=== PATIENT | female | born 1975 | race Caucasian/White ===

== ENCOUNTER 2023-08-13 13:38 | Emergency (ER) | payer OTHER, SELFPAY ==
--- NOTE | ~2023-08-13 | XR_ITS ---
XR hand LT min 3V DATE: 08/13/2023 13:57 INDICATION: Generalized pain at third and fourth digits after lifting TECHNIQUE: 3 views COMPARISON: None FINDINGS: No fracture, dislocation, periosteal reaction or bone destruction, joint space, erosive tri nge or chondrocalcinosis. IMPRESSION: Negative Reviewed, dictated and finalized at location L. IMPRESSION: Negative
--- NOTE | 2023-08-13 13:39 | ED.UPPEXIN ---
HPI - Extremity Injury (Upper) General Chief Complaint: Extremity Injury, Upper Stated Complaint: Left Hand/Finger Injury Time Seen by Provider: 08/13/23 13:39 Source: patient Mode of arrival: ambulatory Limitations: no limitations History of Present Illness HPI narrative: Alejandra is a 48-year-old female patient presenting to the clinic today with complaints of left 3rd and 4th finger injury/pain. She reports that she was lifting a box yesterday and developed pain to the proximal 3rd and 4th fingers. She denies any known injury to her fingers. Related Data Home Medications Medication Instructions Recorded Confirmed progesterone micronized 100 mg 100 mg PO QAM 08/13/23 08/13/23 capsule Allergies Allergy/AdvReac Type Severity Reaction Status Date / Time HYDROCODONE BIT AdvReac Other Uncoded 08/13/23 14:19 Review of Systems Review of Systems: Pertinent positives per HPI. Patient denies any fever, chills, rash, headache, visual changes, dizziness, cough, runny nose, sore throat, shortness of breath, chest pain, palpitations, nausea, vomiting, diarrhea, constipation, abdominal pain, or any urinary issues. PMFSH Comments At the time of my signature, I reviewed and agree with the nursing past medical, surgical, social, and family history. There is no relevant family history pertinent to the patient complaint. Exam Narrative: General: Well-developed, well nourished, in no apparent distress Head: Normocephalic, atraumatic. Cardio: Regular rate and rhythm, s1 and s2 normal, no murmur appreciated. Resp: Clear to auscultation bilaterally, no rhonchi, rales, wheezing or rubs. Musculoskeletal: No deformity, tender to the proximal 3rd and 4th phalanx to palpation, no pain with flexion and extension against resistance, grossly normal range of motion, muscle strength strong and equal, peripheral pulse strong, no edema, no cyanosis, normal gait and station Course Course Emergency Course: Portions of this record may have been created with voice recognition software. Level of Care: Express Care Visit Vital Signs Vital signs: Vital Signs Temperature 36.6 C 08/13/23 13:45 Pulse Rate 74 08/13/23 13:45 Respiratory Rate 18 08/13/23 13:45 Blood Pressure 106/73 08/13/23 13:45 Pulse Oximetry 99 08/13/23 13:45 Oxygen Delivery Room Air 08/13/23 13:45 Temperature 36.6 C 08/13/23 13:45 Pulse Rate 74 08/13/23 13:45 Respiratory Rate 18 08/13/23 13:45 Blood Pressure 106/73 08/13/23 13:45 Pulse Oximetry 99 08/13/23 13:45 Oxygen Delivery Room Air 08/13/23 13:45 Vital signs reviewed MDM - Extremity Injury (Upper) MDM Narrative Medical decision making narrative: At the time of visit patient is resting comfortably on the exam table. X-rays of the left hand was performed and shows no sign of fracture or malalignment of the fingers. Supportive measures were discussed with the patient she voiced understanding discharge instructions agrees to treatment plan. Differential Diagnosis Differential diagnosis: Likely finger sprain and other (Finger pain, tendon strain) Discharge Plan Discharge Clinical Impression: Finger pain, left Patient Disposition: Home, Self-Care Condition: Stable Instructions: Antibiotic Form, Hand Sprain (ED) Additional Instructions: X-ray is negative for any sign of fracture or malalignment of the left hand-pain could be due to inflammation in the proximal fingers Rest, ice, elevate Tylenol/motrin for pain as discussed. Follow up with your PCP if symptoms persist more than 1 week. Prescriptions: No Action progesterone micronized 100 mg Capsule 100 mg PO QAM Rx Instructions: off 7 days; repeat cycle Follow-up/Referrals: UNKNOWN,DOCTOR [Non-Staff] - Time of Disposition: 14:26 Quality NIHSS Nursing Documentation ED NIHSS nursing documentation: reviewed/agree
[2023-08-13 13:45] VITALS: BP 106/73; PULSE 74; RESP 18; TEMP 36.6; O2SAT 99
== END 2023-08-13 14:30 | disposition home or self-care (01) ==
PROVIDERS: Emergency Provider Nurse Practitioner Family
DX: M79.645 Pain in left finger(s) (principal)
CPT/HCPCS: 73130; 99203; G0463

== ENCOUNTER 2024-03-26 12:40 | Emergency (ER) | payer OTHER, SELFPAY ==
[2024-03-26 12:48] VITALS: BP 106/74; PULSE 77; RESP 20; TEMP 37.1; O2SAT 100
--- NOTE | 2024-03-26 13:09 | ED.GENADULT ---
HPI - General Adult General Chief complaint: Back Pain/Injury Stated complaint: Bulging disks w pain Time Seen by Provider: 03/26/24 13:05 Source: patient, family, RN notes reviewed and old records reviewed Mode of arrival: ambulatory Limitations: no limitations History of Present Illness HPI narrative: 48 year old female who presents to [facility] with complaints of posterior neck pain with radiation to shoulder blade left side and down her left arm since the 28 of February. with no known injury. Patient reports that she works at [employer] and she does lift boxes. 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 Patient reports that she was started on Tizanidine and Gabapentin and is taking as prescribed with no improvement in her pain. Patient reports that she was treated with Robaxin, Diclofenac and some prednisone in February with no improvement. Patient states pain is constant and aggravated by any activity only thing seems to decrease pain is raising her arms MD complaint: neck pain down left arm and to posterior left shoulder blade. Onset (ago): week(s) (since February 28 no known injury) Location: neck and back (left shoulder blade and left arm) Severity scale (1-10): 7 Quality: aching, sharp, constant and other (shooting) Pain Consistency: constant Treatments prior to arrival: other (gabapentin and Tizanadine) Related Data Home Medications Medication Instructions Recorded Confirmed progesterone micronized 100 mg 100 mg PO QAM 08/13/23 03/26/24 capsule gabapentin 300 mg capsule 300 mg PO BID 03/26/24 03/26/24 tizanidine 4 mg tablet 4 mg PO BID 03/26/24 03/26/24 Allergies Allergy/AdvReac Type Severity Reaction Status Date / Time HYDROCODONE BIT AdvReac Other Uncoded 03/26/24 13:17 Review of Systems Review of Systems: CONSTITUTIONAL: Denies fever, chills, or sweats. CARDIOVASCULAR: Denies chest pain, palpitations, or edema. RESPIRATORY: Denies cough or dyspnea. GASTROINTESTINAL: Denies abdominal pain, nausea, vomiting, or diarrhea. GENITOURINARY: Denies dysuria or hematuria. SKIN: Denies rash or itching. MUSCULOSKELETAL: Reports posterior cervical pain with radiation to left arm and posterior left scapular area. or myalgia. NEUROLOGIC: Denies headache, no numbness, or weakness. All systems reviewed & are unremarkable except as noted in HPI and below PMFSH Past Medical History Medical History (Updated 03/28/24 @ 13:12 by Merlyn Villalobos NP) Cervical spine pain Surgical History Surgical History (Updated 03/28/24 @ 13:11 by Merlyn Villalobos NP) History of endometrial ablation Hx laparoscopic cholecystectomy Social History Social History (Updated 03/28/24 @ 13:10 by Merlyn Villalobos NP) Smoking status: Current every day smoker Tobacco type: e-cigarettes/vaping Alcohol intake: current Alcohol use details: rare Substance use type: does not use Living arrangements: with family Gender identity (if verbalized by the patient): Female Comments At time of signature, agree with nursing past medical, surgical, social and family history. There is no relevant family history pertinent to the presenting complaint Exam Narrative: GENERAL: Well-appearing, well-nourished, and in acute distress. HEAD: Normocephalic, atraumatic. EYES: PERRLA and EOMI. ENT: Nares clear, no rhinorrhea or epistaxis. Mucous membranes moist. NECK:. no lymphadenopathy, pain to posterior neck CHEST: Clear to auscultation. No respiratory distress.SAO2 100% on room air HEART: Regular rate and rhythm. No murmur heard. Normal peripheral pulses. ABDOMEN: Soft, nontender, nondistended, normal active bowel sounds. EXTREMITIES: Normal range of motion. No edema. strong pulses to all extremities, strength intact no stated numbness or tingling. 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
== END 2024-03-26 13:40 | disposition home or self-care (01) ==
PROVIDERS: Emergency Provider Registered Nurse
DX: M54.12 Radiculopathy, cervical region (principal); F17.290 Nicotine dependence, other tobacco product, uncomplicated
CPT/HCPCS: 99213; G0463